=== PATIENT | female | born 1940 | race American Indian/Alaskan Native ===

== ENCOUNTER 2016-09-25 06:06 | Day surgery (SDC) | payer MEDICARE ==
[2016-09-08 07:37] VITALS: BMI 33.1
[2016-09-25 07:14] LABS: CALCIUM 8.7 mg/dL (8.4-10.5); POTASSIUM 4.1 mmol/L (3.6-5.0)
[2016-09-25] MEDS ORDERED: Midazolam 2 MG/2 ML VIAL ONE (07:27)
[2016-09-25] MEDS ORDERED: Propofol 10 mg/ml Inj (20 ML) ONE (07:27)
[2016-09-25] MEDS ORDERED: Phenylephrine 10 mg/ml Inj ONE (07:27)
[2016-09-25] MEDS ORDERED: ePHEDrine 50 mg/ml Inj ONE (07:27)
[2016-09-25] MEDS ORDERED: Bupivacaine 0.5% Inj(30mL) ONE ×2 (07:36→07:50)
[2016-09-25] MEDS ORDERED: Lidocaine 1% Inj (20ml) ONE (07:46)
[2016-09-25] MEDS ORDERED: HYDROmorphone 0.5 mg/0.5 ml ISec IVP PRN (09:39)
[2016-09-25] MEDS ORDERED: Sodium Chloride 0.9% 1,000 ML IV SCH (09:45)
--- NOTE | 2016-09-25 10:06 | PCM.SURG1 ---
Surgeon's Initial Post Op Note - Surgeon's Notes Surgeon: Dr. Donis Grocery Checker: Dr. Hubbard Type of Anesthesia: General LMA, Local Pre-Operative Diagnosis: ESRD Operative Findings: see op report Post-Operative Diagnosis: ESRD Operation Performed: Left Radial-Cephalic AVF Specimen/Specimens Removed: none Estimated Blood Loss: EBL {In ML}: 5 Blood Products Given: N/A Drains Used: No Drains Post-Op Condition: Good Date of Surgery/Procedure: 09/25/16 Time of Surgery/Procedure: 10:05
[2016-09-25 11:12] VITALS: RESP 18; TEMP 97.4; O2SAT 99
[2016-09-25 12:29] VITALS: BP 144/60; PULSE 80
--- NOTE | 2016-09-25 12:57 | OP ---
PROCEDURE DATE: 09/25/2016 PREOPERATIVE DIAGNOSIS: Renal insufficiency, secondary to hypertension. POSTOPERATIVE DIAGNOSIS: Renal insufficiency, secondary to hypertension. PROCEDURES PERFORMED: 1. Venous mapping of the left arm veins. 2. AV fistula creation between the radial artery and cephalic vein at the wrist. SURGEON: Dr. Donis TRAVEL ACCOMMODATION INSPECTOR: Dr. Hubbard ANESTHESIOLOGIST: Dr. Reid ANESTHESIA: General endotracheal. ESTIMATED BLOOD LOSS: Minimal. SPECIMEN: None. The patient is a 76-year-old female with worsening renal failure, currently not on dialysis and requi ring AV access which may be needed soon. The patient was seen in the office, examined and was schedu led for AV fistula creation. The patient was brought to the operating room and placed on the operating table in a supine position. The patient was connected to EKG, blood pressure and pulse oximeter monitors. The patient then und erwent general LMA anesthesia and was prepped and draped in usual sterile fashion. First, using lidocaine mixed with Marcaine, the area of the left wrist was infiltrated and anesthetiz ed. Next, venous Doppler was used in order to carefully map the course of the cephalic vein all the way from the shoulder down to the wrist. The vessel appeared to be about 3-3.5 mm in diameter at the wrist and about 4-1/2 to 5 mm at the biceps level. Given the findings, I then proceeded with danay long to create AV fistula using the cephalic vein and radial artery. First, using a #15 blade, an incision was made transversely on the wrist extending from the vein to t he radial artery and careful dissection was done through the subcutaneous fat. Flaps were raised in order to expose a longer amount of vein, which was done and side branches were closed with 4-0 silk. Once this was done, I carefully dissected out the artery and elevated it on vessel loops. Now, lisa ent received 4000 units of heparin and once the heparin had circulated for about 2 minutes, we procee ded with cross clamping the artery, clamping the side branches of the artery with bulldog clamps and transecting the cephalic vein at the wrist in order to connect it to the artery. The side branches w ere ligated. Now, the end-to-side anastomosis was created between the cephalic vein and radial arter y and once completed using 6-0 Prolene, the forward flow was established in the AV fistula. There wa s good dopplerable thrill in the new conduit. There was also palpable faint thrill within that vesse l. At this point, the wound was copiously irrigated. All bleeding points were cauterized. There wa s excellent hemostasis and the wound was closed using 3-0 Vicryl for the deep dermis and 4-0 Monocryl for skin. A sterile Dermabond dressing was applied to the wound. The patient tolerated the procedu re well and there was no complications. The patient was awakened and transferred to the [facility] for further observation. Arvin Donis MD cc: [id number] TT: 09/25/2016 12:56:45 en
== END 2016-09-25 12:20 | disposition home or self-care (01) ==
LOC: SDS 06:06
PROVIDERS: ATTEND General Practice
DX: N18.6 End stage renal disease (principal); I12.0 Hypertensive chronic kidney disease with stage 5 chronic kidney disease or end stage renal disease
CPT/HCPCS: 36415; 36818; 80048; J0690; J1170; J1644 ×2; J2001; J2250; J2370; J2405; J2704; J2765; J3010; J7040